=== PATIENT | male | born 1995 | race Caucasian/White ===

== ENCOUNTER 2018-07-29 12:12 | Emergency (ER) | payer SELFPAY ==
--- NOTE | 2018-07-29 12:44 | ED Physician Documentation ---
General Adult - HISTORIAN Historian: patient - HPI Stated Complaint: medication refills after senior living discharge Chief Complaint: General Adult Onset: other (needs med refills) Timing: still present Further Comments: yes (He states he was dischrge from senior living due to med issues - they did confirm this. He needs his meds to get him through until he gets home. Denies any chest pain or other complaints. Called his previous PCP and a list was recieved. Also he was on coumadin and lisinopril only at the senior living) - ROS CONST: no problems - PAST HX Past History: hypertension Other History: none Surgeries/Procedures: other (valve replacement ) Immunizations: referred to PCP - SOCIAL HX Smoking History: cigarettes Alcohol Use: none Drug Use: none - FAMILY HX Family History: No - REVIEWED ASSESSMENTS Nursing Assessment Reviewed: Yes Vitals Reviewed: Yes General Adult Physical Exam - PHYSICAL EXAM GENERAL APPEARANCE: no distress EENT: eye inspection normal, ENT inspection normal NECK: normal inspection, thyroid normal RESPIRATORY: no resp distress, chest non-tender, breath sounds normal CVS: reg rate & rhythm, heart sounds normal ABDOMEN: soft, no organomegaly, normal bowel sounds, no distension BACK: normal inspection, no CVA tenderness SKIN: warm/dry, normal color EXTREMITIES: non-tender, normal range of motion, no evidence of injury, no edema NEURO: oriented X3, CN's nml as tested, motor nml, sensation nml, mood/affect nml, cognition normal Discharge Clincal Impression: Medication refill Referrals: Primary Doctor,No [Primary Care Provider] - 2 Days Additional Instructions: 1. Coumadin 5 mg take 1 by mouth daily 2. Coregg 3.125 mg take 1 by mouth daily 3. Lisinopril 2. 5 mg take 1 by mouth daily 4. Return to PCP when return home 5. Return to ER for any concerns Condition: Stable Disposition: 01 HOME, SELF-CARE Decision to Admit: NO Date of Decison to Admit: 07/29/18 Decision Time: 12:49
[2018-07-29 13:13] VITALS: BP 110/62
== END 2018-07-29 12:58 | disposition home or self-care (01) ==
LOC: ED 12:12
DX: Z76.0 Encounter for issue of repeat prescription (principal)
CPT/HCPCS: 99283